=== PATIENT | male | born 1970 | race Hispanic/Latino ===

== ENCOUNTER 2024-02-25 00:44 | Emergency (ER) | payer SELFPAY ==
[~2024-02-25] VITALS: Ht 165.1 cm; Wt 74.8 kg
[2024-02-25] MEDS: KETOROLAC TROMETHAMINE 60 MG/2 ML VIAL IM ONE (01:04)
[2024-02-25 01:26] LABS: CLARITY,URINE CLEAR (CLEAR); COLOR,URINE YELLOW (YELLOW)
[2024-02-25 01:27] LABS: BACTERIA,URINE FEW /HPF; BILIRUBIN,URINE NEGATIVE (NEGATIVE); EPITHELIAL CELLS,URINE FEW /LPF; GLUCOSE, URINE NEGATIVE (NEGATIVE); KETONES,URINE NEGATIVE (NEGATIVE); LEUKOCYTE ESTERASE ,URINE NEGATIVE (NEGATIVE); NITRITE,URINE NEGATIVE (NEGATIVE); PH,URINE 6.5 (5 - 7); PROTEIN,URINE DIPSTICK NEGATIVE (NEGATIVE); RBC,URINE 0-5 /HPF (0-5); URINE UROBILINOGEN 0.2 mg/dL (0.2 - 1); WBC,URINE (MAN) 0-5 /HPF (0-5)
[2024-02-25 01:33] LABS: RENAL EPITHELIAL CELLS,URINE FEW; TRANSITIONAL EPI CELLS,URINE FEW
[2024-02-25] MEDS ORDERED: ULTRAM 50MG50 MG PO (02:23)
[2024-02-25 02:26] VITALS: BP 104/74; PULSE 55; RESP 19; TEMP 98; O2SAT 99
== END 2024-02-25 02:27 | disposition home or self-care (01) ==
LOC: ER 00:50
DX: R10.30 Lower abdominal pain, unspecified (principal); N30.90 Cystitis, unspecified without hematuria; E78.5 Hyperlipidemia, unspecified
CPT/HCPCS: 74176; 81001; 99283; J1885